=== PATIENT | male | born 1970 | race Caucasian/White ===

== ENCOUNTER 2022-01-09 09:25 | Day surgery (SDC) | payer BC, OTHER ==
[~2022-01-09 09:25] MED LIST: Lactated Ringers 1,000 ML IV SCH
[2022-01-09] MEDS ORDERED: Bupivacaine 0.5% 10 ML SDV ONE ×2 (11:03→12:48)
[2022-01-09] MEDS ORDERED: Octyl 2-Cyanoacrylate 1 Tube ONE (11:03)
[2022-01-09] MEDS ORDERED: Clindamycin Phosphate in D5W 900 MG/50 ML Premix Bag IV ONE (12:18)
[2022-01-09] MEDS ORDERED: Ketamine HCL/NACL, ISO-OSM 50 MG/5 ML Syringe ONE (13:29)
[2022-01-09] MEDS ORDERED: Sugammadex Sodium 200 MG/2 ML VIAL ONE (13:29)
[2022-01-09] MEDS ORDERED: Dexamethasone 4 MG/ML 5 ML MDV ONE (13:29)
[2022-01-09] MEDS ORDERED: fentaNYL 250 MCG/5 ML SDV ONE (13:29)
[2022-01-09] MEDS ORDERED: Propofol 200 MG/20 ML SDV ONE (13:29)
[2022-01-09] MEDS ORDERED: ePHEDrine 50 MG/ML SDV ONE (13:29)
[2022-01-09] MEDS ORDERED: Rocuronium Bromide 50 MG/5 ML Syringe ONE (13:29)
[2022-01-09] MEDS ORDERED: Ketorolac 30 MG/ML SDV ONE (13:29)
[2022-01-09] MEDS ORDERED: Ondansetron 4 MG/2 ML SDV IVPUSH PRN (13:34)
[2022-01-09] MEDS ORDERED: Albuterol 0.083% 2.5 MG/3 ML Neb Soln NEB PRN (13:34)
[2022-01-09] MEDS ORDERED: HYDROmorphone 1 MG/ML Syringe IVPUSH PRN (13:34)
[2022-01-09] MEDS ORDERED: Naloxone 0.4 MG/ML SDV IVPUSH PRN (13:34)
[2022-01-09] MEDS ORDERED: fentaNYL 100 MCG/2 ML SDV IVPUSH PRN (13:34)
[2022-01-09] MEDS ORDERED: Metoclopramide 10 MG/2 ML SDV IVPUSH PRN (13:34)
[2022-01-09] MEDS ORDERED: Acetaminophen/oxyCODONE 325-5 MG Tab PO ONE (14:05)
== END 2022-01-09 14:35 | disposition home or self-care (01) ==
LOC: MW.SDS 09:25
PROVIDERS: ATTEND Surgery
DX: R19.01 Right upper quadrant abdominal swelling, mass and lump (principal); K42.9 Umbilical hernia without obstruction or gangrene; Z88.0 Allergy status to penicillin
CPT/HCPCS: 11406; 49585; A9270; J1100; J1885; J2704; J3010; J3490; J7120; 00750